=== PATIENT | female | born 1975 | race Caucasian/White ===

== ENCOUNTER → 2018-04-15 | Outpatient (CLI) | payer BC ==
[~2018-04-15] MED LIST: ACHD5005 PO; FRS325T PO; PREN1TAB39 PO
--- NOTE | 2018-04-15 18:43 | Diagnostic Imaging Report ---
EXAM: ANKLE, LEFT, 3 VIEWS INDICATION: ACUTE LT ANKLE PAIN COMPARISON: None. FINDINGS: No fracture or malalignment. Ankle mortise and talar dome appear intact. No radiopaque foreign bodies. IMPRESSION: Negative left ankle radiographs. Dictated by: Dictated on workstation # [id number]
== END ==
LOC: RAD 17:53
PROVIDERS: ATTEND Nurse Practitioner Family
DX: M25.572 Pain in left ankle and joints of left foot (principal)
CPT/HCPCS: 73610

== ENCOUNTER → 2022-02-01 | Outpatient (CLI) | payer BC ==
--- NOTE | 2022-02-01 10:34 | Diagnostic Imaging Report ---
INDICATION: Routine screening. COMPARISON: No prior mammograms are available for comparison. This is a baseline study. TECHNIQUE: 2D and 3D bilateral screening mammography was performed with CAD. FINDINGS: Both breasts show marked parenchymal heterogeneity and increased density, limiting the sensitivity of mammography. No mass is identified. There are scattered benign calcifications. No malignant appearing microcalcifications are seen. The axillae are unremarkable. IMPRESSION: No mammographic features suspicious for malignancy are identified. ACR BI-RADS Category 2: Benign findings. Result letter will be mailed to the patient. Note: At least 10% of breast cancer is not imaged by mammography. Dictated by: Dictated on workstation # [id number]
== END ==
LOC: RAD 09:09
PROVIDERS: ATTEND Nurse Practitioner Women's Health
DX: Z12.31 Encounter for screening mammogram for malignant neoplasm of breast (principal)
CPT/HCPCS: 77063; 77067